=== PATIENT | female | born 2000 | race Caucasian/White ===

== ENCOUNTER 2024-08-21 09:37 | Emergency (ER) | payer SELFPAY ==
--- OUTSIDE RECORDS SUMMARY | 2024-08-21 09:41 | XMS REPORT | Continuity of Care Document ---
Author Name Unknown Address [address] [facility] [place] [address] [facility] Address [address] [facility] [place] [address] Care Team Providers Care General Activities Therapist Name Role Phone Patti Albrecht MD Primary Care Physician CASSIE SCHMIDT Attending Clinician Unavailable 2, [facility] Attending Clinician Unavailable Nadya Joyner MD Attending Clinician [phone] NADYA JOYNER Attending Clinician Unavailable NADYA JOYNER Attending Clinician Unavailable Ghada Wilburn MD Attending Clinician + [phone] JUDE PHILLIPS Attending Clinician Unavailable JUDE PHILLIPS Attending Clinician Unavailable CHARMAINE ZUNIGA Attending Clinician Unavailab CHARMAINE Mann Attending Clinician Unavailab Fiordaliza Zimmerman DO Attending Clinician [phone] NOAM CONWAY Attending Clinician Unavailable Noam Conway MD Attending Clinician [phone] BERT COULTER Attending Clinician Unavailable BERT COULTER Attending Clinician Unavailable Lavinia Graff DNP Attending Clinician [phone] CHEVY [place]IN Attending Clinician Unavailable Chevy Austin MD Attending Clinician [phone] PATTI ALBRECHT Attending Clinician Unava ilable [email or web address]_S Attending Clinician Unavaila ble LAB90 Attending Clinician Unavailable MD RIYA Attending Clinician Unavailab JHOAN Azul Attending Clinician Unavaila tong Hunddaren SEMI DRIVER-C, Tala Attending Clinician [phone] Jeffry JJ LD, Jhoan Rodriguez Attending Clinician [phone] Trena HARTMAN, Patti Weinstein Attending Clinician [phone] MARGUERITE VALVERDE Attending Clinician Unavailable Doctor Unassigned, [place] Attending Clinician U navailable CHEVY AUSTIN Admitting Clinician Unavailable [email or web address]_S Admitting Clinician Unavaila ble Payers Payer Name Policy Type Policy Number Effective Date Expirati on Date Source [place] [id number] 2019 00:00:00 BCBS 2 [id number] 2021 00:00:[place] [id number] 2019 00:00:00 Problems Condition Name Condition Details Condition Category Status Onset Date Resolution Date Last Treatment Date Treating Clinician Comments Source Obesity (BMI 30-39.9) Obesity (BMI 30-39.9) Disease Active 03-12 00:00: 00 [facility] Allergic conjunctiv itis of both eyes - Not Controlled Allergic conjunctiv itis of both eyes - Not Controlled Disease Active 07-16 00:00: 00 Jessica Avery - Externa l No known active problems No known active problems Disease Jessica Avery Allergies, Adverse Reactions, Alerts Allergy Name Allergy Type Status Severity Reaction(s) Onset Date Inactive Date Treating Clinician Comments Source NO KNOWN ALLERGIE S Drug Class Active [facility] Social History Social Habit Start Date Stop Date Quantity Comments Source [facility] SD[facility] Alcohol Std Drinks Jessica castillo History SDOH Alcohol Binge Jessica Avery History SDOH Alcohol Comment Jessica Tee ld Alcoholic beverage intake 2024-06-08 00:00:00 2024-06-08 00:00:00 Ex-drinker (finding) [facility] History of Social function 2024-06-08 00:00:00 2024-06-08 00:00:00 [facility] Tobacco use and exposure 2024-03-12 00:00:00 2024-03-12 00:00:00 Smokeless tobacco non-user [facility] Alcohol intake 2022-06-28 00:00:00 2022-06-28 00:00:00 Lifetime non-drinker (finding) Jessica Avery - External History SDOH Alcohol Frequency 2021-04-06 00:00:00 2021-04-06 00:00:00 1 Jessica Avery Sex Assigned At 2000 00:00:00 2000 00:00:00 Jessica Avery - External Smoking Status Start Date Stop Date Source Tobacco smoking consumption unknown [facility] Never smoked tobacco [facility] Medications Ordered Medication Name Filled Medication Name Start Date Stop Date Current Medication? Ordering Clinician Indication Dosage Frequency Signature (SIG) Comments Components Source amoxicillin -clavulanat e (AUGMENTIN) 875-125 mg per tablet 1 tablet 05-14 05:45: 00 05-14 04:55 :00 No 1{tbl} 1 tablet, Oral, ONCE NOW, 1 dose, On Fri05/14/24 at 0045, Routine, Reason for Anti-Infec tive: Documented Infection, Documented Infection Site: HEENT, Duration of Therapy: Once (ED) [facility] lidocaine-e pinephrine (XYLOCAINE WITH EPINEPHRINE ) 1 %-1:100,000 injection 20 mL 05-14 03:20: 00 05-14 03:30 :00 No 20mL 20 mL, Intraderma l, ONCE, 1 dose, On Meme 05/13/24 at 2230, BRANDY [facility] lidocaine 2% viscous (LIDOCAINE VISCOUS) 2 % solution 15 mL 05-14 03:19: 38 Yes 15mL 15 mL, Oral, Q4HPRN, Starting on Fri05/13/24 at 2219, Until Discontinu ed, BRANDY, Oral mucosal pain, pl [facility] acetaminoph en (TYLENOL) 160 mg/5 mL oral liquid 650 mg 05-14 02:45: 00 05-14 01:56 :00 No 650mg 650 mg, Oral, ONCE, 1 dose, On Fri05/13/24 at 2145, Routine [facility] iopamidol (ISOVUE 370-500 mL) injection 88 mL 05-14 01:45: 00 05-14 01:45 :00 No [id number] 88mL 88 mL, Intravenou s, ONCE, 1 dose, On Fri05/13/24 at 204, Routine [facility] ampicillin- sulbactam (UNASYN) 3 g in NaCl 0.9% (NS) 100 mL MINI-BAG 05-14 01:00: 00 05-14 02:05 :00 No 3g 3 g, IV Piggyback, ONCE, 1 dose, On Fri05/13/24 at 1999, Administer over 30 Minutes, 100 mL, Reason for Anti-Infec tive: Documented Infection, Documented Infection Site: HEENT, Duration of Therapy: Once (ED) [facility] NaCl 0.9% (NS) bolus infusion 1,000 mL 05-14 01:00: 00 05-14 02:05 :00 No 1000mL at 999 mL/hr, 1,000 mL, IV Infusion, ONCE, 1 dose, On Fri05/13/24 at 2000, BRANDY [facility] dexamethaso ne sod phos PF injection 10 mg 05-14 00:15: 00 05-14 01:46 :00 No 10mg 10 mg, Slow IV Push, ONCE, 1 dose, On Fri05/13/24 at 1915, 1 mL [facility] methylPREDN ISolone 4 mg tablets 05-13 00:00: 00 Yes [id number] Take by mouth SEE-INSTRU CTIONS. follow package directions [facility] amoxicillin -clavulanat e 875-125 mg per tablet 05-13 00:00: 00 05-24 04:59 :00 No [id number] 1{tbl} Take 1 tablet by mouth in the morning and 1 tablet in the evening. Do all this for 10 days. [facility] NaCl 0.9% (NS) bolus infusion 1,000 mL 05-02 20:00: 00 05-02 21:25 :00 No 1000mL at 999 mL/hr, 1,000 mL, IV Infusion, ONCE, 1 dose, On Fri05/02/24 at 1500, BRANDY [facility] HYDROcodone -acetaminop hen (NORCO) 10-325 mg tablet 1 tablet 03-30 08:30: 00 03-30 07:27 :00 No 1{tbl} 1 tablet, Oral, ONCE NOW, 1 dose, On Fri03/30/24 at 0330, Routine [facility] traMADoL (ULTRAM) 50 mg tablet 03-30 00:00: 00 Yes [id number] 50mg Take 1 tablet by mouth every 6 (six) hours as needed for Pain (scale 7-10). Indication s: acute pain [facility] methocarbam oL 500 mg tablet 03-30 00:00: 00 Yes [id number] 500mg Take 1 tablet by mouth every 6 (six) hours as needed for Pain (scale 7-10) (MUSCLE SPASM). [facility] ibuprofen (IBU) tablet 600 mg 03-04 06:30: 00 03-04 06:27 :00 No 600mg 600 mg, Oral, ONCE, 1 dose, On Fri03/04/24 at 0130, BRANDY [facility] Testosteron e 20.25 MG/ACT (1.62%) transdermal Gel 2022-10 00:00: [id number] 4 Pump onto the skin daily. Jessica mercedes methylPREDN ISolone 4 MG oral Tablet Therapy Pack 07-16 00:00: 00 Yes [id number] 1{teodora} Take 1 teodora by mouth See Admin Instructio ns Use as directed Jessica Avery Testosteron e Cypionate 100 MG/ML injection Solution 2019-10 00:00: 00 Yes Jessica Avery sulfamethox azole-trime thoprim 800-160 mg per tablet 2018-10 00:00: 00 Yes [id number] 1{tbl} Take 1 tablet by mouth every 12 (twelve) hours. [facility] traMADol (ULTRAM) 50 mg tablet 2018-10 00:00: 00 Yes [id number] 50mg Take 1 tablet by mouth every 8 (eight) hours as needed for Pain (scale 4-6). [facility] Immunizations Ordered Immunization Name Filled Immunization Name Date Status Comments Source DTaP Unspecified Unknown Completed Ollie Avery - External HEPATITIS A- PEDI/ADOL Unknown Completed Jessica Daly Meningococcal Vaccine- Conjugate(Menactra) Unknown Completed Jessica hirschboarley Waldron External MMR- Measles, Mumps, Rubella Unknown Completed Jessica Waldron External IPV- Inactivated Polio Vaccine Unknown Completed Jessica Waldron External Tdap- (Boostrix, Adacel) Unknown Completed Jessica Waldron External Varicella Vaccine Unknown Completed Lobito Avery - External Vital Signs Vital Name Observation Time Observation Value Comments S ource Systolic blood pressure 2024-06-08 19:27:00 110 mm[Hg] [facility] Diastolic blood pressure 2024-06-08 19:27:00 74 mm[Hg] [facility] Heart rate 2024-06-08 19:27:00 92 /min [facility] Body temperature 2024-06-08 19:27:00 36.89 Yajaira [facility] Body height 2024-06-08 19:27:00 172.7 cm [facility] Body weight 2024-06-08 19:27:00 111.676 kg [facility] BMI 2024-06-08 19:27:00 37.43 kg/m2 [facility] Systolic blood pressure 2024-05-14 05:04:03 143 mm[Hg] [facility] Diastolic blood pressure 2024-05-14 05:04:03 87 mm[Hg] [facility] Heart rate 2024-05-14 05:04:03 94 /min [facility] Body temperature 2024-05-14 05:04:03 37.44 Yajaira [facility] Respiratory rate 2024-05-14 05:04:03 16 /min [facility] Oxygen saturation in Arterial blood by Pulse oximetry 2024-05-14 05:04:03 97 /min [facility] Body height 2024-05-14 03:14:00 172.7 cm [facility] Body weight 2024-05-14 03:14:00 111.131 kg [facility] BMI 2024-05-14 03:14:00 37.25 kg/m2 [facility] Systolic blood pressure 2024-05-14 01:00:00 142 mm[Hg] [facility] Diastolic blood pressure 2024-05-14 01:00:00 82 mm[Hg] [facility] Heart rate 2024-05-14 01:00:00 119 /min [facility] Body temperature 2024-05-14 01:00:00 38.06 Yajaira [facility] Respiratory rate 2024-05-14 01:00:00 20 /min [facility] Oxygen saturation in Arterial blood by Pulse oximetry 2024-05-14 01:00:00 96 /min [facility] Body height 2024-05-14 00:02:00 172.7 cm [facility] Body weight 2024-05-14 00:02:00 111.131 kg [facility] BMI 2024-05-14 00:02:00 37.25 kg/m2 [facility] Systolic blood pressure 2024-05-02 21:25:00 117 mm[Hg] [facility] Diastolic blood pressure 2024-05-02 21:25:00 63 mm[Hg] [facility] Heart rate 2024-05-02 21:25:00 59 /min [facility] Body temperature 2024-05-02 21:25:00 37.28 Yajaira [facility] Respiratory rate 2024-05-02 21:25:00 16 /min [facility] Oxygen saturation in Arterial blood by Pulse oximetry 2024-05-02 21:25:00 99 /min [facility] Body height 2024-05-02 18:54:00 172.7 cm [facility] Body weight 2024-05-02 18:54:00 111.131 kg [facility] BMI 2024-05-02 18:54:00 37.25 kg/m2 [facility] Systolic blood pressure 2024-03-30 07:00:00 133 mm[Hg] [facility] Diastolic blood pressure 2024-03-30 07:00:00 80 mm[Hg] [facility] Heart rate 2024-03-30 07:00:00 61 /min [facility] Body temperature 2024-03-30 07:00:00 36.61 Yajaira [facility] Respiratory rate 2024-03-30 07:00:00 18 /min [facility] Body height 2024-03-30 07:00:00 172.7 cm [facility] Body weight 2024-03-30 07:00:00 110.678 kg [facility] BMI 2024-03-30 07:00:00 37.10 kg/m2 [facility] Oxygen saturation in Arterial blood by Pulse oximetry 2024-03-30 07:00:00 100 /min [facility] Systolic blood pressure 2024-03-13 06:14:00 134 mm[Hg] [facility] Diastolic blood pressure 2024-03-13 06:14:00 79 mm[Hg] [facility] Heart rate 2024-03-13 06:14:00 73 /min [facility] Body temperature 2024-03-13 06:14:00 36.94 Yajaira [facility] Respiratory rate 2024-03-13 06:14:00 18 /min [facility] Oxygen saturation in Arterial blood by Pulse oximetry 2024-03-13 06:14:00 98 /min [facility] Body height 2024-03-13 04:16:00 172.7 cm [facility] Body weight 2024-03-13 04:16:00 111.585 kg [facility] BMI 2024-03-13 04:16:00 37.40 kg/m2 [facility] Systolic blood pressure 2024-03-12 18:57:00 134 mm[Hg] [facility] Diastolic blood pressure 2024-03-12 18:57:00 84 mm[Hg] [facility] Heart rate 2024-03-12 18:57:00 68 /min [facility] Body temperature 2024-03-12 18:57:00 37 Yajaira [facility] Respiratory rate 2024-03-12 18:57:00 18 /min [facility] Body height 2024-03-12 18:57:00 172.7 cm [facility] Body weight 2024-03-12 18:57:00 111.857 kg [facility] BMI 2024-03-12 18:57:00 37.50 kg/m2 [facility] Systolic blood pressure 2024-03-04 07:37:00 127 mm[Hg] [facility] Diastolic blood pressure 2024-03-04 07:37:00 83 mm[Hg] [facility] Heart rate 2024-03-04 07:37:00 78 /min [facility] Body temperature 2024-03-04 07:37:00 36.94 Yajaira [facility] Respiratory rate 2024-03-04 07:37:00 16 /min [facility] Oxygen saturation in Arterial blood by Pulse oximetry 2024-03-04 07:37:00 99 /min [facility] Body height 2024-03-04 05:47:00 172.7 cm [facility] Body weight 2024-03-04 05:47:00 114.443 kg [facility] BMI 2024-03-04 05:47:00 38.36 kg/m2 [facility] Procedures Procedure Date / Time Performed Performing Clinicia n Source POCT TEST 2024-06-08 00:00:00 Nadya Joyner [facility] CT SOFT TISSUE NECK W CONTRAST 2024-05-14 00:57:37 Charmaine Zuniga [facility] BASIC METABOLIC PANEL (NA, K, CL, CO2, GLUCOSE, BUN, CREATININE, CA) 2024-05-14 00:15:00 Charmaine Zuniga [facility] CBC WITH DIFF 2024-05-14 00:15:00 Charmaine Zuniga [facility] RAPID STREP SCREEN FOR GROUP A 2024-05-14 00:08:00 Charmaine Zuniga [facility] EKG-12 LEAD 2024-05-02 20:57:[address] [facility] POCT TEST 2024-05-02 19:44:00 Mary Zuniga ra [facility] MAGNESIUM 2024-05-02 19:28:00 Charmaine Zuniga [facility] COMP. METABOLIC PANEL (40172) 2024-05-02 19:28:00 Charmaine Zuniga [facility] CBC WITH DIFF 2024-05-02 19:28:00 Charmaine Zuniga [facility] URINALYSIS 2024-05-02 19:28:00 Charmaine Zuniga [facility] XR HUMERUS 2 VW LEFT 2024-03-04 06:32:36 Chevy Austin [facility] REFERRAL- REQUEST/RESPONSE 2021-06-22 05:01:00 Doctor Unassigned, [place] [facility] Encounters Start Date/Time End Date/Time Encounter Type Admission Type Attending [facility] Care Facility Care Department Encounter ID Source 2023-06-05 10:37:[address] [facility] [id number] [facility] 2023-02-13 13:09:[address] [facility] [id number] [facility] 2023-01-30 10:43:[address] [facility] [id number] [facility] 2023-01-29 05:04:[address] [facility] [id number] [facility] 2023-01-16 07:29:[address] [facility] [id number] [facility] 2023-01-14 16:37:[address] [facility] [id number] [facility] 2022-08-23 14:29:[address] [facility] [id number] [facility] 2022-01-07 12:13:[address] [facility] [id number] [facility] 2021-11-29 12:23:[address] [facility] [id number] [facility] 2024-09-23 10:45:00 2024-09-23 10:45:00 Outpatient CASSIE SCHMIDT JESSICA DIANE [id number] [facility] 2024-08-19 00:00:00 2024-08-19 00:00:00 Outpatient ELEANOR SCMHIDTARNA JESSICA DIANE [id number] [facility] 2024-06-08 15:45:00 2024-06-08 16:00:00 Iso Coordinator Visit 2, Adc Lab Nadya Joyner 2, Adc Lab [facility] [id number] 350.1.13.10 4.2.7.2.686 [id number] [facility] 2024-06-08 14:00:00 2024-06-08 15:21:49 Outpatient R NADYA JOYNER [facility] [id number] [facility] 2024-06-08 14:00:00 2024-06-08 15:21:49 Office Visit Ghada Yao Vien Cam [facility] [id number] 350.1.13.10 4.2.7.2.686 [id number] [facility] 2024-05-13 22:15:00 2024-05-14 00:14:00 Emergency X JUDE PHILLIPS [facility]IO [facility] [id number] [facility] 2024-05-13 22:15:00 2024-05-14 00:14:00 Emergency Jude Phillips [facility] 1.2.840.114 350.1.13.10 4.2.7.2.686 [id number] [facility] 2024-05-13 19:10:00 2024-05-13 21:15:00 Emergency CHARMAINE VELAZQUEZ SANDR[facility] [id number] [facility] 2024-05-13 19:10:00 2024-05-13 21:15:00 Emergency Fiordaliza Gaming Sandra J [facility] 1.2840.114 350.1.13.10 4.2.7.2.686 [id number] [facility] 2024-05-02 13:56:00 2024-05-02 16:27:00 Emergency CHARMAINE VELAZQUEZ [facility] [id number] [facility] 2024-05-02 13:56:00 2024-05-02 13:56:00 Emergency Charmaine Zuniga [place] 1.2.840.114 350.1.13.10 4.2.7.2.686 [id number] [facility] 2024-04-15 08:00:00 2024-04-15 08:00:00 Outpatient NADYA ROBERTO [facility] [id number] [facility] 2024-03-30 02:04:00 2024-03-30 03:02:00 Emergency X NOAM CONWAY [facility] E[facility] [id number] [facility] 2024-03-30 02:04:00 2024-03-30 03:02:00 Emergency Noam Conway [place] 1.2.840.114 350.1.13.10 4.2.7.2.686 [id number] [facility] 2024-03-12 23:20:00 2024-03-13 01:28:00 Emergency X BERT COULTER [facility] [id number] [facility] 2024-03-12 23:20:00 2024-03-13 01:28:00 Emergency Rico [facility] 1..840.114 350.1.13.10 4.2.7.2.686 [id number] [facility] 2024-03-12 13:30:00 2024-03-12 14:35:40 Office Visit Momo Lavinia [facility] 1.2.840.114 350.1.13.10 4.2.7.2.686 [id number] [facility] 2024-03-12 13:30:00 2024-03-12 14:35:40 Outpatient R MOMO [facility] [id number] [facility] 2024-03-04 00:50:00 2024-03-04 02:54:00 Emergency X KHRIS AUSTINNT [facility] [id number] [facility] 2024-03-04 00:50:00 2024-03-04 02:54:00 Emergency Chevy Austin J [place] 1..840.114 350.1.13.10 4.2.7.2.686 [id number] [facility] 2024-02-23 14:00:00 2024-02-23 14:00:00 Outpatient PATTI ALBRECHT [id number] [facility] 2023-12-16 00:00:00 2023-12-16 00:00:00 Outpatient CASSIE SCHMIDT [id number] [facility] 2023-12-10 00:00:00 2023-12-10 00:00:00 Outpatient GC_GCBZW_Ka diyala_S PRIV PRIV [id number] [facility] 2023-10-02 10:50:00 2023-10-02 10:50:00 Outpatient LAB90 JESSICA DIANE [id number] [facility] 2023-09-23 10:15:00 2023-09-23 10:15:00 Outpatient CASSIE SCHMIDT JESSICA DIANE [id number] [facility] 2023-09-18 00:00:00 2023-09-18 00:00:00 Outpatient CASSIE SCHMIDT JESSICA DIANE [id number] [facility] 2023-09-17 00:00:00 2023-09-17 00:00:00 Outpatient CASSIE SCHMIDT JESSICA DIANE [id number] [facility] 2023-09-16 00:00:00 2023-09-16 00:00:00 Outpatient CASSIE SCHMIDT JESSICA DIANE [id number] [facility] 2023-07-07 00:00:00 2023-07-07 00:00:00 Outpatient MD JESSICA COHEN [id number] [facility] 2023-06-30 00:00:00 2023-06-30 00:00:00 Outpatient GC_GCBZW_Ka diyala_S PRIV PRIV [id number] [facility] 2023-06-27 00:00:00 2023-06-27 00:00:00 Outpatient GC_GCBZW_Ka diyala_S PRIV PRIV [id number] [facility] 2023-06-10 00:00:00 2023-06-10 00:00:00 Outpatient GC_GCBZW_Ka diyala_S PRIV PRIV [id number] [facility] 2023-02-03 00:00:00 2023-02-03 00:00:00 Outpatient CASSIE SCHMIDT JESSICA DIANE [id number] [facility] 2023-01-29 00:00:00 2023-01-29 00:00:00 Outpatient CASSIE SCHMIDT JESSICA DIANE [id number] [facility] 2023-01-10 14:55:00 2023-01-10 14:55:00 Outpatient LAB90 JESSICA DIANE [id number] Jessica [facility] 2022-09-10 11:55:00 2022-09-10 11:55:00 Outpatient LAB90 JESSICA DIANE [id number] Jessica [facility] 2022-09-04 00:00:00 2022-09-04 00:00:00 Outpatient CASSIE SCHMIDTLILLY DIANE [id number] Jessica [facility] 2022-08-23 15:00:00 2022-08-23 15:00:00 Outpatient JHOAN TERAN [id number] Jessica [facility] 2022-08-23 00:00:00 2022-08-23 00:00:00 Outpatient CASSIE SCHMIDT JESSICA DIANE [id number] [facility] 2022-08-22 00:00:00 2022-08-22 00:00:00 Outpatient CASSIE SCHMIDT JESSICA DIANE [id number] [facility] 2022-08-16 09:15:00 2022-08-16 09:15:00 Outpatient LAB90 JESSICA JESSICA [id number] Jessica [facility] 2022-08-07 16:30:00 2022-08-07 16:30:00 Outpatient CASSIE SCHMIDT JESSICA DIANE [id number] [facility] 2022-08-05 13:30:00 2022-08-05 13:30:00 Outpatient CASSIE SCHMIDT JESSICA DIANE [id number] [facility] 2022-06-28 14:00:00 2022-06-28 14:30:00 Office Visit Tala Hung 1.2.840.114 350.1.13.13 [id number] [id number] Jessica [facility] 2022-06-25 00:00:00 2022-06-25 00:00:00 Outpatient PATTI ALBRECHT [id number] [facility] 2022-06-21 15:30:00 2022-06-21 16:30:00 Education Jhoan Teran [facility] 1.2840.114 350.1.13.13 [id number] [id number] Jessica [facility] 2022-04-08 16:15:00 2022-04-08 16:30:00 Office Visit Patti Albrecht [place] 1.2840.114 350.1.13.13 [id number] [id number] Jessica [facility] 2022-04-05 14:45:00 2022-04-05 14:45:00 Outpatient TRENA PATTI DIANE [id number] Jessica [facility] 2022-04-04 14:00:00 2022-04-04 14:00:00 Outpatient PATTI ALBRECHT [id number] Jessica [facility] 2022-03-28 00:00:00 2022-03-28 00:00:00 Outpatient TRENA, PATTI DIANE [id number] [facility] 2021-11-05 00:00:00 2021-11-05 00:00:00 Outpatient TRENA PATTI DIANE [id number] Jessica [facility] 2021-09-10 00:00:00 2021-09-10 00:00:00 Outpatient MARGUERITE VALVERDE [id number] Jessica [facility] 2021-09-06 00:00:00 2021-09-06 00:00:00 Outpatient TRENA PATTI DIANE [id number] [facility] 2021-09-06 00:00:00 2021-09-06 00:00:00 Outpatient PATTI ALBRECHT [id number] Jessica [facility] 2021-09-05 13:59:45 2021-09-05 14:29:45 Telemedici nm Patti Albrecht [place] 1.2.840.114 350.1.13.13 1.2.7.2.686 [id number] Jessica [facility] 2021-07-27 00:00:00 2021-07-27 00:00:00 Outpatient MD JESSICA COHEN [id number] Jessica kacijani 2021-07-16 07:46:35 2021-07-16 08:18:01 Telemedici darrius Patti Albrecht [place] [id number] Jessica Avery 2021-06-22 00:00:00 2021-06-22 00:00:00 Orders Only Doctor Unassigned, [place] [facility] [id number] [facility] 2021-06-06 12:25:00 2021-06-06 12:25:00 Outpatient LAB90 JESSICA DIANE [id number] Jessica Avery 2021-06-06 11:15:00 2021-06-06 11:15:00 Outpatient MARGUERITE VALVERDE [id number] Jessica Avery Results Test Description Test Time Test Comments Results Result Co mments Source [facility] W [id number] 01:05:11EXAM: CT SOFT TISSUE NECK W CONTRAST History/Indication: Fever and throat swelling Comparison: NoneTechnique: Axial postcontrast images were obtained from supraventricularregion through the mediastinum. Findings: Visualized aspects of the brain, orbits and paranasal sinuseswere without worrisome findings. The tonsils are grossly enlarged and enhancing bilaterally right greaterthan left, and there is an approximately 2.5 x 1.4 x 3 cm right- sidedperitonsillar abscess annotated on image 37 of series 2 and coronal image32.The airway is severely narrowed but patent. There are reactive nodesbilaterally.[facility] CenterMagnesium2024-07-14 20:12:17 * Test Item Value Reference Range Interpretation Comme nts MAGNESIUM (test code = 7155815688) 2.0 mg/dL 1.7-2.4 Lab Interpretation (test cod e = 04501-0) Normal [facility] CenterCOMP. METABOLIC PANEL (52991)2024-05-02 20:11:57* Test Item Value Reference Range Interpretation Comme nts NA (test code = 9381620832) 135 mmol/L 135-145 K (test code = 3823224825) 4.3 mmol/L 3.5-5.0 CL (test code = 6705704472) 103 mmol/L 98-108 CO2 TOTAL (test code = 2018840549) 27 mmol/L 23-31 AGAP (test code = 2009366035) 5 2-16 BUN (test code = 2279803091) 15 mg/dL 7-23 GLUCOSE (test code = 2997999732) 78 mg/dL 70-110 CREATININE (test code = 2160-0) 0.67 mg/dL 0.50-1.04 TOTAL BILI (test code = 7226463431) 0.9 mg/dL 0.1-1.1 CALCIUM (test code = 3016577591) 8.8 mg/dL 8.6-10.6 T PROTEIN (test code = 9197287184) 7.2 g/dL 6.3-8.2 ALBUMIN (test code = 2395668801) 4.0 g/dL 3.5-5.0 ALK PHOS (test code = 9873549863) 65 U/L 34-122 ALTv (test code = 1742-6) 18 U/L 5-35 AST(SGOT) (test code = 5154582266) 23 U/L 13-40 eGFR (test code = 77519-0) 126.1 mL/min/1.73m2 CKD-EPI eGFR (20 21). Assuming creatinine has been stable day-to-day for at least three months, the eGFR indicates Category G1 (>= 90 mL/min/1.73 m2) [facility] CenterCB WITH [id number] 19:58:36* Test Item Value Reference Range Interpretation Comme nts WBC (test code = 6690-2) 8.51 4.30-11.10 RBC (test code = 789-8) 4.89 3.93-5.25 HGB (test code = 718-7) 14.3 g/dL 11.6-15.0 HCT (test code = 4544-3) 42.2 % 35.7-45.2 MCV (test code = 787-2) 86.3 fL 80.6-95.5 MCH (test code = 785-6) 29.2 pg 25.9-32.8 MCHC (test code = 786-4) 33.9 g/dL 31.6-35.1 RDW-SD (test code = 46406-5) 38.9 fL 39.0-49.9 L RDW-CV (test code = 788-0) 12.4 % 12.0-15.5 PLT (test code = 777-3) 284 166-358 MPV (test code = 20611-5) 10.3 fL 9.5-12.9 NRBC/100 WBC (test code = 8153805027) 0.0 0.0-10.0 NRBC x10^3 (test code = 0510891574) See_Comment [Automated messa ge] The system which generated this result transmitted reference range: 10*3/?L. The reference range was not used to interpret this result as normal/abnormal. GRAN MAT (NEUT) % (test code = 770-8) 56.8 % IMM GRAN % (test code = 4549123054) 0.20 % LYMPH % (test code = 736-9) 33.1 % MONO % (test code = 5905-5) 8.2 % EOS % (test code = 713-8) 1.1 % BASO % (test code = 706-2) 0.6 % GRAN MAT x10^3(ANC) (test code = 3644312367) 4.83 10*3/uL 1.88-7.09 IMM GRAN x10^3 (test code = 5839745290) 0.00-0.06 LYMPH x10^3 (test code = 731-0) 2.82 10*3/uL 1.32-3.29 MONO x10^3 (test code = 742-7) 0.70 10*3/uL 0.33-0.92 EOS x10^3 (test code = 711-2) 0.09 10*3/uL 0.03-0.39 BASO x10^3 (test code = 704-7) 0.05 10*3/uL 0.01-0.07 Lab Interpretation (test code = 44000-1) Abnormal [facility] CenterPOCT [id number] 19:44:00* Test Item Value Reference Range Interpretation Comme nts POCT PREG (test code = 1605) Negative On board controls acceptable with C Line (test code = 3574) Yes Lab Interpretation (test cod e = 72028-3) Normal [facility] CenterXR HUMERUS 2 VW [id number] 07:19:12 ORDERING PHYSICIAN: CHEVY AUSTIN TWO VIEWS OF LEFT HUMERUS. DATE: ?03/04/2024 2:18 AM CLINICAL INDICATIONS: Left arm injury, pain COMPARISON: None. FINDINGS: ?Frontal and lateral views of the left humerus demonstrate noevidence for acute fracture, subluxation or destructive osseous lesion. The overlying soft tissue is unremarkable.[facility] Notes Date/Time Note Provider Source 2024-06-08 15:45:00 Images from the original note were not included. Venipuncture collection performed by clean technique on the left anticubitus. Total of 1 attempts were made. Slight pressure and a bandage/dressing were applied to the site(s). The patient experienced no complications. The following specimens were processed according to instructions and sent to [facility] laboratories per lab order on 06/08/2024 : LT BLUE SST 1 RED LAV PPT DK GREEN (LiHep) DK GREEN (SodH) MCKEON DK BLUE (K2) DK BLUE (S) ACD Blood Culture NIPT/NTD [facility] - Health 2024-05-14 00:11:05 Patient given printed and verbal discharge instructions and medications, encouraged hydration and proper nutrition. Discussed indications, medication side effects, and therapeutic response to medications. Advised to take until completed unless adverse reaction occurs - if occurs, discontinue medication and follow up with PCP/seek medical attention. Patient verbalized understanding of instructions. Patient awake alert oriented, respirations even and unlabored, no acute distress noted, skin warm & dry, color appropriate for race, moves all extremities well. Patient encouraged to follow up with PCP and to keep all appropriate appointments as scheduled or to return to ED for new/prolonged/worsening of symptoms No adverse reaction to medications given in ER noted upon discharge PIV d'cd without complications, dressing to site, catheter intact. Patient in possession of all belongings. [facility] Awaiting ride. Harshad Thompson RN Harshad Thompson RN [facility] 2024-05-13 23:52:15 SW at bedside. Pt provided with [employer]. Dysphagia screening passed. Provided with applesauce and water. Tolerated well. [facility] 2024-05-13 23:42:36 Images from the original note were not included. ED [facility] Case Note 05/13/2024 11:42 PM Transportation arranged via Ready[employer] Set, [employer] . Patient name: Fito Mathew Discharge date: 05/13/2024 Reason for voucher: Pt is discharging from the ER and was brought here by REFERRAL. Pt is need of transportation home Voucher #: [id number] ELEANOR met with pt face to face Pt is AOX 4 Pt verbally confirmed address on facesheet: [address] [facility] [address] HARIKA Shelley It Application Architect [facility] - Care Management Office [email or web address] [facility] 2024-05-13 23:21:12 Pt lying in bed, respirations even and unlabored, no distress noted. Bed locked and lowered with side rail up. Pt understands plan of care and verbalizes understanding. No medications, labs or interventions due at this time. Call catalan with in reach. [facility] 2024-05-13 22:42:43 Suction set up at bedside. Provided with lidocaine and supplies per request. [facility] 2024-05-13 22:42:05 ENT at bedside. [facility] 2024-05-13 22:37:14 Pharmacy contacted. Advised meds would be tubed. [facility] 2024-05-13 22:24:09 MD at the bedside. Luiza Grove RN [facility] 2024-05-13 22:13:50 Fito Mathew is a 23 year old adult bib ems as referral for ENT consult d/t peritonsillar abscess. Reporting pain 04/28. Airway patent and managing secretions. Aox4, rr even and unlabored on ra, skin warm and dry. To 127 for further eval. ENT paged at [phone]. En route to see pt. Orders to be placed. Orlando Jimenez RN [facility] 2024-05-13 22:12:00 [facility] Emergency Department Note Demographics Patient Name: Fito Mathew Date of : 2000 23 year old Treatment [facility]: [facility] Primary Care Physician: Patti Albrecht [facility] Patient Escorted by: Self [9] Mode of Arrival: EMS - [facility] [69] EMS Treatment Prior to ED Arrival: ESTHETICIAN FACIALIST treatment: Medication (comment) ED Events Date/Time Event User Comments 05/13/242214 Medical Screening Begins JUDE PHILLIPS MD -- 05/13/242214 First Provider Evaluation JUDE PHILLIPS MD -- Chief complaint Chief Complaint Patient presents with REFERRAL ED Triage Notes Orlando Jimenez RN 05/13/2024 22:20 Fito Mathew is a 23 year old adult bib ems as referral for ENT consult d/t peritonsillar abscess. Reporting pain 04/28. Airway patent and managing secretions. Aox4, rr even and unlabored on ra, skin warm and dry. To rm 127 for further eval. ENT paged at [phone]. En route to see pt. Orders to be placed. Chief Complaint Patient presents with REFERRAL History of present illness HPI 23 yo comes to the ED complaining of peritonsillar abscess. Patient is a transfer from [facility]. Symptoms started a week ago. No sick contacts. BP (!) 142/82 | Pulse 75 | Temp 37.8 ?C (100.1 ?F) | Resp 18 | Ht 1.727 m (5' 8") | Wt 111.1 kg (245 lb) | BMI 37.25 kg/m? Past Medical and Social History Past Medical History: Diagnosis Date PCOS (polycystic ovarian syndrome) Peritonsillar abscess Per mother Tetanus received in last 5 years: Unknown Childhood immunizations: Up-to-date Social History Tobacco Use Smoking status: Never Smokeless tobacco: Never Vaping Use Vaping status: Never Used Substance Use Topics Alcohol use: Not Currently Drug use: Never Past Surgical History Past Surgical History: Procedure Laterality Date CHOLECYSTECTOMY Medications Medications lidocaine 2% viscous (LIDOCAINE VISCOUS) 2 % solution 15 mL (15 mL Oral Given by Provider 05/13/242319) lidocaine-epinephrine (XYLOCAINE WITH EPINEPHRINE) 1 %-1:100,000 injection 20 mL (20 mL Intradermal Given by Provider 05/13/242229) Allergies No Known Allergies Review of Systems Review of Systems Constitutional: Negative. HENT: Positive for sore throat. Eyes: Negative. Respiratory: Negative. Cardiovascular: Negative. Gastrointestinal: Negative. Genitourinary: Negative. Musculoskeletal: Negative. Skin: Negative. Neurological: Negative. Psychiatric/Behavioral: Negative. Endocrine: Endocrine negative Physical Exam BP (!) 142/82 | Pulse 75 | Temp 37.8 ?C (100.1 ?F) | Resp 18 | Ht 1.727 m (5' 8") | Wt 111.1 kg (245 lb) | BMI 37.25 kg/m? Physical Exam Vitals and nursing note reviewed. Constitutional: General: He is not in acute distress. Appearance: He is well-developed. He is not ill-appearing. HENT: Head: Normocephalic and atraumatic. Right Ear: Ear canal and external ear normal. Left Ear: Ear canal and external ear normal. Nose: Nose normal. No congestion or rhinorrhea. Mouth/Throat: Mouth: Mucous membranes are moist. Pharynx: Oropharynx is clear. No oropharyngeal exudate or posterior oropharyngeal erythema. Eyes: General: Right eye: No discharge. Left eye: No discharge. Conjunctiva/sclera: Conjunctivae normal. Pupils: Pupils are equal, round, and reactive to light. Cardiovascular: Rate and Rhythm: Normal rate and regular rhythm. Pulses: Normal pulses. Heart sounds: Normal heart sounds. No murmur heard. No friction rub. Pulmonary: Effort: Pulmonary effort is normal. No respiratory distress. Breath sounds: Normal breath sounds. No stridor. No wheezing or rhonchi. Abdominal: General: Bowel sounds are normal. There is no distension. Palpations: Abdomen is soft. There is no mass. Tenderness: There is no abdominal tenderness. Hernia: No hernia is present. Musculoskeletal: General: No swelling, tenderness, deformity or signs of injury. Normal range of motion. Cervical back: Normal range of motion and neck supple. No rigidity or tenderness. Skin: General: Skin is warm and dry. Capillary Refill: Capillary refill takes less than 2 seconds. Coloration: Skin is not jaundiced or pale. Findings: No bruising or erythema. Neurological: General: No focal deficit present. Mental Status: He is alert and oriented to person, place, and time. Cranial Nerves: No cranial nerve deficit. Sensory: No sensory deficit. Motor: No weakness. Coordination: Coordination normal. Psychiatric: Mood and Affect: Mood normal. Behavior: Behavior normal. Thought Content: Thought content normal. Judgment: Judgment normal. Labs and Studies Lab Results - No data to display No orders to display Orders and Treatments Orders Placed This Encounter Procedures Wound/Aspirate or Abscess Culture Aspirate or Abscess Culture(Aerobic/Anaerobic) Consult Otolaryngology Orders Placed This Encounter Medications lidocaine 2% viscous (LIDOCAINE VISCOUS) 2 % solution 15 mL lidocaine-epinephrine (XYLOCAINE WITH EPINEPHRINE) 1 %-1:100,000 injection 20 mL Patient's Medications START taking these medications No medications on file CONTINUE taking these medications which have NOT CHANGED METHOCARBAMOL 500 MG TABLET Take 1 tablet by mouth every 6 (six) hours as needed for Pain (scale 7-10) (MUSCLE SPASM). SULFAMETHOXAZOLE-TRIMETHOPRIM 800-160 MG PER TABLET Take 1 tablet by mouth every 12 (twelve) hours. TRAMADOL (ULTRAM) 50 MG TABLET Take 1 tablet by mouth every 8 (eight) hours as needed for Pain (scale 4-6). TRAMADOL (ULTRAM) 50 MG TABLET Take 1 tablet by mouth every 6 (six) hours as needed for Pain (scale 7-10). Indications: acute pain START taking Modified Medications as Prescribed No medications on file STOP taking these medications No medications on file Procedures Procedures Evidence Care MDM & Notes Patient was evaluated for an emergency medical condition related to REFERRAL Labs:were not ordered. Abnormal Labs Reviewed - No abnormal labs to display Imaging:Was not ordered Diagnosis/Impression as of 05/13/24 2330 Peritonsillar abscess Medical Decision Making 23 yo comes to the ED complaining of peritonsillar abscess. Patient is a transfer from [facility]. Symptoms started a week ago. No sick contacts. BP (!) 142/82 | Pulse 75 | Temp (!) 31.2 ?C (88.2 ?F) (Oral) | Resp 18 | Ht 1.727 m (5' 8") | Wt 111.1 kg (245 lb) | BMI 37.25 kg/m? Assessment and plan: consult ENT for evaluation of ESTHETICIAN FACIALIST. Amount and/or Complexity of Data Reviewed Discussion of management or test interpretation with external provider(s): Peritonsillar abscess drained at bedside by ENT. Prescriptions given, advised to continue medications f/u with ENT and return to the ED if worsening of symptoms. Patient understands and agrees with the plan. Pulse Oximetry: is not hypoxic. Interpreted. Reassessment:stable Limitations to patient care and compliance: none. Plan & Summary: Fito Mathew is a 23 year old adult presenting for complaint(s) listed within the note. Patient has been deemed stable for discharge. Follow up with providers listed below for further evaluation and management. Return precautions given if symptoms worsen as documented in the discharge instructions. History, physical exam findings, results of visit, diagnosis, medication regimens and plan of future care have been considered. Additional MDM may be found in the ED course. Vital signs were rechecked before final disposition and determined to be stable. Disposition & Follow Up ED Disposition ED Disposition Disch - Home Condition Stable Comment -- Patient's Medications START taking these medications No medications on file CONTINUE taking these medications which have NOT CHANGED METHOCARBAMOL 500 MG TABLET Take 1 tablet by mouth every 6 (six) hours as needed for Pain (scale 7-10) (MUSCLE SPASM). SULFAMETHOXAZOLE-TRIMETHOPRIM 800-160 MG PER TABLET Take 1 tablet by mouth every 12 (twelve) hours. TRAMADOL (ULTRAM) 50 MG TABLET Take 1 tablet by mouth every 8 (eight) hours as needed for Pain (scale 4-6). TRAMADOL (ULTRAM) 50 MG TABLET Take 1 tablet by mouth every 6 (six) hours as needed for Pain (scale 7-10). Indications: acute pain START taking Modified Medications as Prescribed No medications on file STOP taking these medications No medications on file Diagnoses ICD-10-CM 1. Peritonsillar abscess J36 Disposition and Condition ED Disposition ED Disposition Disch - Home Condition Stable Comment -- Patient's Medications START taking these medications No medications on file CONTINUE taking these medications which have NOT CHANGED METHOCARBAMOL 500 MG TABLET Take 1 tablet by mouth every 6 (six) hours as needed for Pain (scale 7-10) (MUSCLE SPASM). SULFAMETHOXAZOLE-TRIMETHOPRIM 800-160 MG PER TABLET Take 1 tablet by mouth every 12 (twelve) hours. TRAMADOL (ULTRAM) 50 MG TABLET Take 1 tablet by mouth every 8 (eight) hours as needed for Pain (scale 4-6). TRAMADOL (ULTRAM) 50 MG TABLET Take 1 tablet by mouth every 6 (six) hours as needed for Pain (scale 7-10). Indications: acute pain START taking Modified Medications as Prescribed No medications on file STOP taking these medications No medications on file Oh My [employer] Dict[employer] Software is used frequently and may produce errors. Promptly contact for obvious discrepancies. Jude Phillips MD, FACEP, FAAEM Port Engineer of Emergency and Internal Medicine [facility], [facility] #[id number] Jude Phillips MD 05/13/24 2331 T [facility] 2024-05-13 21:11:57 Patient transferred to [facility] ED [place] for diagnosis of peritonsillar abscess. Patient agrees to transfer/admit plan and verbalized understanding of plan of care, family aware of plan Patient awake alert, oriented, resp reg unlabored, skin w/d PIV patent, no s/s infiltration noted, No adverse reaction to medications given while in ED. Report given to [facility] personnel Grace Infante RN [facility] 2024-05-13 20:55:17 Pt with swollen and red throat with foul odor. Airway intact, no resp distress. Pt able to swallow liquids with small sips at a time. [facility] 2024-05-13 20:33:31 [facility] ambulance eta 30min [facility] 2024-05-13 19:02:12 Throat swelling since Friday. Pt arrived by [facility]. Low grade fever at home Julia Thompson RN [facility] 2024-05-13 19:01:00 [facility] Emergency Department Note Patient Name: Fito Mathew Date of : 2000 23 year old adult Treatment Room: Room/bed info not found Primary Care Physician: PATIENT DOES NOT HAVE A PCP Patient Escorted by: Self [9] [facility] EMS Treatment Prior to ED Arrival: ESTHETICIAN FACIALIST treatment: Medication (comment) ESTHETICIAN FACIALIST treatment comments: Nyquil 1pm Travel and Exposure Screening: Symptoms Does patient have any of these symptoms?: (not recorded) Exposure Screening Has patient had contact with someone with a communicable disease in the last month?: (not recorded) Diseases exposed to:: (not recorded) Is Patient ?: (not recorded) Exposure Date: (not recorded) Chief Complaint: Chief Complaint Patient presents with Sore Throat History of Present Illness: The patient presents from home with EMS for evaluation for worsening sore throat over the past 1 week. Low-grade fevers up to 99. No sick contacts. He does not smoke. No cough or congestion. He did take some NyQuil earlier today. Here for evaluation. Past Medical History/Immunizations: Past Medical History: Diagnosis Date PCOS (polycystic ovarian syndrome) Peritonsillar abscess Per mother Tetanus received in last 5 years: Unknown Childhood immunizations: Up-to-date Allergies: No Known Allergies Past Social History: Tobacco Use Never smoked or used smokeless tobacco. Vaping Use Never used Alcohol Use Not Currently. Drug Use Never. Sexual Activity Sexually active; Partners: Male; Control/Protection: Inserts. Past Surgical History: Past Surgical History: Procedure Laterality Date CHOLECYSTECTOMY Review of Systems: Review of Systems Constitutional: Negative for chills and fever. HENT: Positive for sore throat. Negative for congestion and drooling. Respiratory: Negative for cough. Cardiovascular: Negative for chest pain. Gastrointestinal: Negative for abdominal pain and vomiting. Genitourinary: Negative for dysuria. Musculoskeletal: Negative for arthralgias. Skin: Negative for wound. Neurological: Negative for dizziness. Psychiatric/Behavioral: Negative for agitation. Physical Exam: ED Triage Vitals [05/13/24 1902] Weight 111.1 kg (245 lb) Actual or estimated Estimated by patient/family report Height 1.727 m (5' 8") BP (!) 140/99 Pulse 128 Resp 20 Temp 37.4 ?C (99.3 ?F) Temp source Oral SpO2 97 % Measured on Room air Physical Exam Vitals and nursing note reviewed. Constitutional: Appearance: Normal appearance. He is obese. HENT: Head: Normocephalic and atraumatic. Mouth/Throat: Comments: Swelling of the posterior pharynx without airway compromise. The uvula is midline. He does have a hot potato voice but is able to control his secretions. Cardiovascular: Rate and Rhythm: Normal rate and regular rhythm. Pulses: Normal pulses. Pulmonary: Effort: Pulmonary effort is normal. No respiratory distress. Abdominal: General: There is no distension. Palpations: There is no mass. Tenderness: There is no abdominal tenderness. Musculoskeletal: General: Normal range of motion. Cervical back: Normal range of motion and neck supple. Skin: General: Skin is warm and dry. Neurological: General: No focal deficit present. Mental Status: He is alert and oriented to person, place, and time. Radiology: CT SOFT TISSUE NECK W CONTRAST Final Result EXAM: CT SOFT TISSUE NECK W CONTRAST History/Indication: Fever and throat swelling Comparison: None Technique: Axial postcontrast images were obtained from supraventricular region through the mediastinum. Findings: Visualized aspects of the brain, orbits and paranasal sinuses were without worrisome findings. The tonsils are grossly enlarged and enhancing bilaterally right greater than left, and there is an approximately 2.5 x 1.4 x 3 cm right-sided peritonsillar abscess annotated on image 37 of series 2 and coronal image 32. The airway is severely narrowed but patent. There are reactive nodes bilaterally. IMPRESSION Impression: Bilateral tonsillitis with a right-sided peritonsillar abscess and airway compression. Lab Results: Lab Results RAPID STREP SCREEN FOR GROUP A - Abnormal Result Value Ref Range Molecular Strep Positive (*) Negative CBC WITH DIFF WBC 16.23 10*3/?L RBC 5.21 10*6/?L HGB 15.1 g/dL HCT 44.9 35.7 - 45.2 % MCV 86.2 fL MCH 29.0 pg MCHC 33.6 g/dL RDW-SD 38.1 fL RDW-CV 12.1 % PLT 310 10*3/?L MPV 10.4 fL NRBC/100 WBC 0.0 0.0 - 10.0 /100 WBCs NRBC x10 3 <0.01 10*3/?L GRAN MAT (NEUT) % 78.3 % IMM GRAN % 0.50 % LYMPH % 11.6 % MONO % 8.9 % EOS % 0.4 % BASO % 0.3 % GRAN MAT x10 3 (ANC) 12.72 10*3/uL IMM GRAN x10 3 0.08 10*3/uL LYMPH x10 3 1.88 10*3/uL MONO x10 3 1.44 10*3/uL EOS x10 3 0.06 10*3/uL BASO x10 3 0.05 10*3/uL BASIC METABOLIC PANEL (NA, K, CL, CO2, GLUCOSE, BUN, CREATININE, CA) NA 138 135 - 145 mmol/L K 3.7 3.5 - 5.0 mmol/L CL 101 98 - 108 mmol/L CO2 TOTAL 27 23 - 31 mmol/L AGAP 10 2 - 16 BUN 11 7 - 23 mg/dL GLUCOSE 90 70 - 110 mg/dL CREATININE 0.63 mg/dL CALCIUM 9.2 8.6 - 10.6 mg/dL eGFR 128.0 mL/min/1.73m2 EKG: If EKG completed, see Procedure Note. Orders and Treatments: Orders Placed This Encounter Procedures CT SOFT TISSUE NECK W CONTRAST RAPID STREP SCREEN FOR GROUP A CBC WITH DIFF BASIC METABOLIC PANEL (NA, K, CL, CO2, GLUCOSE, BUN, CREATININE, CA) Orders Placed This Encounter Medications NaCl 0.9% (NS) bolus infusion 1,000 mL dexamethasone sod phos PF injection 10 mg iopamidol (ISOVUE 370-500 mL) injection 88 mL ampicillin-sulbactam (UNASYN) 3 g in NaCl 0.9% (NS) 100 mL MINI-BAG First Provider Eval: ED Events Date/Time Event User Comments 05/13/241905 Medical Screening Begins CHARMAINE ZUNIGA DO -- 05/13/241905 First Provider Evaluation CHARMAINE ZUNIGA DO -- AdmissionCare Guideline: Head and Neck Surgery / Procedure, Inpt/Amb Based on the indications selected for the patient, the bed status of Outpatient in a Bed was determined to be MET The following indications were selected as present at the time of evaluation of the patient: - Clinical Indications for Procedure - Surgery or other procedure covered by this guideline is indicated for 1 or more of the following: - Abscess (eg, peritonsillar abscess) Operative Status Criteria selected: Ambulatory: Benchmark Length of Stay (BLOS) = A AdmissionCare documentation entered by: Charmaine Zuniga [facility], 28th edition, Copyright ? 2023 [facility] [employer] [facility] All Rights Reserved. [id number]:19-05:00 ED COURSE Diagnosis/Impression as of 05/13/242034 Throat pain Tachycardia Peritonsillar abscess Procedures: Procedures MDM: Medical Decision Making The patient presents from home via EMS for evaluation for worsening sore throat over the past 1 week. He also complains of low-grade fevers of 99. No sick contacts. No cough or congestion. He tried some NyQuil earlier today. He does not smoke. The patient is tachycardic in the ER. There is swelling of the posterior pharynx however there is no airway compromise. The uvula is midline. He does have trismus as well as a hot potato voice. Will screen for strep and obtain a CT soft tissue neck to eval for possible peritonsillar abscess. Will also give IV fluids and Decadron for his throat swelling. Final disposition pending. 2023 -the patient is doing well here in the ER. Laboratory studies are unremarkable. A CT of the soft tissue neck shows a peritonsillar abscess. He was given a dose of IV antibiotics here in the ER. Will need to be transferred to the [facility] for drainage by ENT. 2030 -spoke with with the ENT service in [place] and the patient was accepted for admission for continued management. He is pending transportation. Problems Addressed: Peritonsillar abscess: acute illness or injury Tachycardia: acute illness or injury Throat pain: acute illness or injury Amount and/or Complexity of Data Reviewed Labs: ordered. Decision-making details documented in ED Course. Radiology: ordered and independent interpretation performed. Decision-making details documented in ED Course. Risk Prescription drug management. Decision regarding hospitalization. Flowsheet Documentation: Scoring Tools: No data recorded Disposition/Condition: ED Disposition ED Disposition Transfer - [facility] to [facility] Condition -- Comment -- Discharge Medications: Patient's Medications START taking these medications No medications on file CONTINUE taking these medications which have NOT CHANGED METHOCARBAMOL 500 MG TABLET Take 1 tablet by mouth every 6 (six) hours as needed for Pain (scale 7-10) (MUSCLE SPASM). SULFAMETHOXAZOLE-TRIMETHOPRIM 800-160 MG PER TABLET Take 1 tablet by mouth every 12 (twelve) hours. TRAMADOL (ULTRAM) 50 MG TABLET Take 1 tablet by mouth every 8 (eight) hours as needed for Pain (scale 4-6). TRAMADOL (ULTRAM) 50 MG TABLET Take 1 tablet by mouth every 6 (six) hours as needed for Pain (scale 7-10). Indications: acute pain START taking Modified Medications as Prescribed No medications on file STOP taking these medications No medications on file Follow-up: Electronically signed by: Charmaine Zuniga DO 05/13/242034 [facility] 2024-05-13 19:01:00 AdmissionCare Guideline: Head and Neck Surgery / Procedure, Inpt/Amb Based on the indications selected for the patient, the bed status of Outpatient in a Bed was determined to be MET The following indications were selected as present at the time of evaluation of the patient: - Clinical Indications for Procedure - Surgery or other procedure covered by this guideline is indicated for 1 or more of the following: - Abscess (eg, peritonsillar abscess) Operative Status Criteria selected: Ambulatory: Benchmark Length of Stay (BLOS) = A AdmissionCare documentation entered by: Charmaine Zuniga [facility], 28th edition, Copyright ? 2023 [facility] All Rights Reserved. [id number]:23:19-05:00 T [facility] 2024-05-02 16:26:12 Pt given printed and verbal discharge instructions regarding dizziness, encouraged hydration. Pt verbalized understanding of instructions, pt awake alert oriented, resp reg unlabored, skin w/d, color appropriate for race, moves all ext well, pt encouraged to follow up with pcp. Advised to seek medical attention for new/prolonged/worsening of symptoms. Symptoms addressed. No adverse reaction to meds given in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
[2024-08-21] MEDS ORDERED: KETOROLAC 30 MG/ML INJ ONE (10:09)
[2024-08-21] MEDS ORDERED: PROMETHAZINE INJ 25 MG/ML AMP ONE (10:09)
[2024-08-21] MEDS ORDERED: NA CHLORIDE 0.9% 1,000 ML ONE (10:09)
[2024-08-21] MEDS ORDERED: MORPHINE 4 MG/ML SYR ONE (10:09)
[2024-08-21 10:11] LABS: Absolute Eosinophils 0.1 K/uL (0-0.5); Absolute Lymphocytes (CBC) 1.8 K/uL (0.7-4.9); Absolute Monocytes 0.6 K/uL (0.1-1.3); Absolute Neutrophil 4.4 K/uL (1.8-8.0); Basophils % 0.6 % (0-1.3); Eosinophils % 1.9 % (0-4.4); Hematocrit 40.5 % (36.0-45.0); Hemoglobin 13.9 g/dL (12.0-15.0); Lymphocytes % 25.2 % (15.3-44.8); MCH 29.5 pg (27.0-35.0); MCHC 34.4 g/dL (32.0-36.0); MCV 85.8 fL (80-100); MPV 7.5 fL (7.6-11.3); Neutrophils % 63.3 % (41.7-73.7); Platelets 277 thou/uL (152-406); RBC Red Blood Cell Count 4.72 M/uL (3.86-4.86); Red Cell Distribution Width 12.4 % (12.1-15.2)
[2024-08-21 10:32] LABS: Anion Gap 6.1 mEq/L (5.0-15.0); Potassium 4.1 mEq/L (3.5-5.1)
[2024-08-21 10:32] LABS: Specific Gravity > 1.030 (1.005-1.030)
--- NOTE | 2024-08-21 11:09 | RAD REPORT ---
EXAMINATION: CT ABDOMEN AND PELVIS WITHOUT CONTRAST CLINICAL INDICATION: PAIN TECHNIQUE: CT abdomen and pelvis was performed, without IV contrast, as per department protocol. Axia l, sagittal and coronal reconstructions were obtained. One or more of the following dose reduction techniques were used: Automated exposure control, adjustment of the mA and kV according to the patien t size, and iterative reconstruction. Unless otherwise specified, incidental findings do not require dedicated imaging follow-up. COMPARISON: No prior exam. FINDINGS: The lack of intravenous contrast limits the sensitivity of this exam for evaluation of solid visceral organs, vascular structures, and retroperitoneum. LOWER CHEST: The visualized lung bases are clear. LIVER:Normal in size and contour. No focal lesion. Cholecystectomy clips. SPLEEN: Normal size. No focal lesion. PANCREAS: No mass, ductal dilation, or becca-pancreatic fluid. ADRENALS: Normal; no mass. KIDNEYS AND URETERS: Normal size and contour. No hydronephrosis. URINARY BLADDER: Normal contour. GASTROINTESTINAL TRACT: No evidence of bowel obstruction, significant free fluid, free air or abscess . APPENDIX: Normal appendix. LYMPH NODES: No lymphadenopathy. MUSCULOSKELETAL: No acute or suspicious osseous abnormality. ADDITIONAL FINDINGS: None. IMPRESSION: No acute or concerning abnormalities in the abdomen or pelvis, with evaluation limited by lack of IV contrast.
--- NOTE | 2024-08-21 12:07 | ER ---
Nurse's Notes [facility] Name: Libia Mathew Age: 24 yrs Sex: Female : 2000 Arrival Date: 08/21/2024 Time: 09:37 Bed 14 Private MD: Diagnosis: Abdominal pain, unspecified;Acute stress reaction Presentation: 08/21 09:43 Chief complaint: Patient states: woke up with upper right abd pain , feels like iw gallbladder pain but has had it removed, also vomiting. Coronavirus screen: Client presents with at least one sign or symptom that may indicate coronavirus-19. Ebola Screen: No symptoms or risks identified at this time. Initial Sepsis Screen: Does the patient meet any 2 criteria? No. Patient's initial sepsis screen is negative. Does the patient have a suspected source of infection? No. Patient's initial sepsis screen is negative. Risk Assessment: Do you want to hurt yourself or someone else? Patient reports no desire to harm self or others. 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 - Social history:: transitioning to male, Smoking status: Patient denies any tobacco usage or history of. - Infectious Disease History:: Denies. Screenin:46 [facility] ED Fall Risk Assessment (Adult) History of falling in the last 3 months, rs5 including since admission No falls in past 3 months (0 pts) Confusion or Disorientation No (0 pts) Intoxicated or Sedated No (0 pts) Impaired Gait No (0 pts) Mobility Assist Device Used No (0 pt) Altered Elimination No (0 pt) Score/Fall Risk Level 0 - 2 = Low Risk Oriented to surroundings, Maintained a safe environment. Abuse screen: Denies threats or abuse. Nutritional screening: No deficits noted. Tuberculosis screening: No symptoms or risk factors identified. Assessment: 09:46 General: Appears in no apparent distress. uncomfortable, Behavior is calm, cooperative. rs5 Pain: Complains of pain in abdomen Pain currently is 8 out of 10 on a pain scale. Quality of pain is described as aching, Is continuous. Neuro: Level of Consciousness is awake, alert, obeys commands, Oriented to person, place, time, situation. Cardiovascular: Patient's skin is warm and dry. Respiratory: Airway is patent Respiratory effort is even, unlabored, Respiratory pattern is regular, symmetrical. GI: Abdomen is round non-distended, Bowel sounds present X 4 quads. Abd is soft and non tender X 4 quads. GI: Reports nausea, vomiting. : No signs and/or symptoms were reported regarding the genitourinary system. EENT: No signs and/or symptoms were reported regarding the EENT system. Derm: Skin is intact, Skin is pink, warm \T\ dry. Musculoskeletal: Range of motion: intact in all extremities. 10:55 Reassessment: Patient and/or family updated on plan of care and expected duration. Pain rs5 level reassessed. Patient is alert, oriented x 3, equal unlabored respirations, skin warm/dry/pink. 11:31 Reassessment: Patient and/or family updated on plan of care and expected duration. Pain rs5 level reassessed. Patient is alert, oriented x 3, equal unlabored respirations, skin warm/dry/pink. 12:10 Reassessment: Patient and/or family updated on plan of care and expected duration. Pain rs5 level reassessed. Patient is alert, oriented x 3, equal unlabored respirations, skin warm/dry/pink. Vital Signs: 09:43 BP 141 / 93; Pulse 65; Resp 18; Pulse Ox 99% on R/A; Pain 9/10; iw 12:01 BP 127 / 88; Pulse 74; Resp 17; Pulse Ox 99% ; rs5 09:43 Pain Scale: Adult iw ED Course: 09:39 Patient arrived in ED. im 09:41 Liliya Ga FNP-C is PHCP. snw 09:41 Kel Chacko MD is Attending Physician. snw 09:44 Triage completed. iw 09:44 Arm band placed on. iw 09:46 Patient has correct armband on for positive identification. Placed in gown. Bed in low rs5 position. Call light in reach. Side rails up X2. 09:59 Quinteros, Saad, RN is Primary Nurse. rs5 10:01 No provider procedures requiring assistance completed. Inserted saline lock: 20 gauge rs5 in right antecubital area, using aseptic technique. Blood collected. Flushed with 10 mL NS. 10:21 Radiology exam delayed due to test not completed at this time. sm9 10:53 CT Stone Protocol In Process Unspecified. EDMS Administered Medications: 10:10 Drug: Promethazine IVP 6.25 mg IVP once Route: IVP; Site: right antecubital; rs5 10:22 Follow up: Response: No adverse reaction; Nausea is decreased rs5 10:20 Drug: NS 0.9% IV 1000 ml IV at 1000 ml once; to be given as a bolus over 60 minutes rs5 Route: IV; Rate: 1000 ml; Site: right antecubital; 11:20 Follow up: Response: No adverse reaction; IV Status: Completed infusion; IV Intake: rs5 1000ml 10:20 Drug: Ketorolac IVP 15 mg IVP once Route: IVP; Site: right antecubital; rs5 10:40 Follow up: Response: No adverse reaction; Pain is decreased rs5 11:03 Not Given (Patient Refused): morphineor iv 4 mg IVP once over 4 mins rs5 Medication: 09:45 VIS not applicable for this client. rs5 Intake: 11:20 IV: 1000ml; Total: 1000ml. rs5 Outcome: 12:06 Discharge ordered by . snw 12:15 Discharge ordered by MD. snw 12:34 Patient left the ED. em1 Signatures: Dispatcher [employer] EDMS Liliya Ga FNP-C FNP-Marcy Montes De Oca, RN Yousuf Miranda em1 Saad Quinteros, KERRIE RN rs5 Francisca Washington Sarah sm9
--- NOTE | 2024-08-21 12:07 | EDPHYS ---
Physician Documentation [facility] Name: Libia Mathew Age: 24 yrs Sex: Female : 2000 Arrival Date: 08/21/2024 Time: 09:37 Bed 14 Private MD: ED Physician Kel Chacko HPI: 08/21 10:06 This 24 yrs old Female presents to ER via Ambulatory with complaints of Abdominal Pain, snw Vomiting, possible . 10:06 The patient presents with abdominal pain in the right upper quadrant. Onset: The snw symptoms/episode began/occurred suddenly. The symptoms radiate to right back. Associated signs and symptoms: Pertinent positives: nausea and vomiting. The symptoms are described as sharp. Severity of pain: At its worst the pain was severe incapacitating. The patient has experienced a previous episode, but today's symptoms are worse. The patient has not recently seen a physician. 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 - Social history:: transitioning to male, Smoking status: Patient denies any tobacco usage or history of. - Infectious Disease History:: Denies. ROS: 10:02 Eyes: Negative for injury, pain, redness, and discharge, ENT: Negative for injury, snw pain, and discharge, Neck: Negative for injury, pain, and swelling, Cardiovascular: Negative for chest pain, palpitations, and edema, Respiratory: Negative for shortness of breath, cough, wheezing, and pleuritic chest pain, 10:02 : Negative for injury, bleeding, discharge, and swelling, MS/Extremity: Negative for injury and deformity, Skin: Negative for injury, rash, and discoloration, Neuro: Negative for headache, weakness, numbness, tingling, and seizure, Psych: Negative for depression, anxiety, suicide ideation, homicidal ideation, and hallucinations, 10:02 Constitutional: Positive for body aches, malaise, poor PO intake, 10:02 Abdomen/GI: Positive for abdominal pain, nausea, "feels like when I had my gallbladder taken out", 10:02 Back: Positive for radiated pain, Exam: 10:01 Eyes: Pupils equal round and reactive to light, extra-ocular motions intact. Lids and snw lashes normal. Conjunctiva and sclera are non-icteric and not injected. Cornea within normal limits. Periorbital areas with no swelling, redness, or edema. ENT: Nares patent. No nasal discharge, no septal abnormalities noted. Tympanic membranes are normal and external auditory canals are clear. Oropharynx with no redness, swelling, or masses, exudates, or evidence of obstruction, uvula midline. Mucous membranes moist. Neck: Trachea midline, no thyromegaly or masses palpated, and no cervical lymphadenopathy. Supple, full range of motion without nuchal rigidity, or vertebral point tenderness. No Meningismus. Chest/axilla: Normal chest wall appearance and motion. Nontender with no deformity. No lesions are appreciated. Cardiovascular: Regular rate and rhythm with a normal S1 and S2. No gallops, murmurs, or rubs. Normal PMI, no JVD. No pulse deficits. Respiratory: Lungs have equal breath sounds bilaterally, clear to auscultation and percussion. No rales, rhonchi or wheezes noted. No increased work of breathing, no retractions or nasal flaring. 10:01 Back: No spinal tenderness. No costovertebral tenderness. Full range of motion. Skin: Warm, dry with normal turgor. Normal color with no rashes, no lesions, and no evidence of cellulitis. MS/ Extremity: Pulses equal, no cyanosis. Neurovascular intact. Full, normal range of motion. Neuro: Awake and alert, GCS 15, oriented to person, place, time, and situation. Cranial nerves II-XII grossly intact. Motor strength 5/5 in all extremities. Sensory grossly intact. Cerebellar exam normal. Normal gait. Psych: Awake, alert, with orientation to person, place and time. Behavior, mood, and affect are within normal limits. 10:01 Constitutional: The patient appears alert, awake, restless, uncomfortable, 10:01 Head/face: facial hair, transitioning. 10:01 Abdomen/GI: Inspection: abdomen appears normal, Bowel sounds: normal, Palpation: mild abdominal tenderness, moderate abdominal tenderness, in the posterior aspect of right lateral abdomen and right upper quadrant, Vital Signs: 09:43 BP 141 / 93; Pulse 65; Resp 18; Pulse Ox 99% on R/A; Pain 9/10; iw 12:01 BP 127 / 88; Pulse 74; Resp 17; Pulse Ox 99% ; rs5 09:43 Pain Scale: Adult iw MDM: 09:41 Medical Screening Exam initiated snw 10:04 Differential diagnosis: gastritis, pancreatitis, Pyelonephritis, Ureterolithiasis, snw hemoconcentration, polycythemia. Data reviewed: vital signs, nurses notes, lab test result(s), radiologic studies. I considered the following discharge prescriptions or medication management in the emergency department Medications were administered in the Emergency Department. See MAR. Historians other than the Patient: Spouse/Significant Other: David. Counseling: I had a detailed discussion with the patient and/or guardian regarding the historical points, exam findings, and any diagnostic results supporting the discharge/admit diagnosis, lab results, radiology results. 10:58 Medication response: morphine markedly relieved the patient's pain. Symptoms have snw improved, Phenergan markedly relieved the patient's nausea, toradol, markedly relieved. 15:43 Special discussion: Based on the patient's Hx, exam, and Dx evaluation, there is no snw indication for emergent surgery or inpatient Tx. It is understood by the patient/guardian that if the Sx's persist or worsen they need to return immediately for re-evaluation. Based on the history and exam findings, there is no indication for further emergent testing or inpatient evaluation. I discussed with the patient/guardian the need to see the supervisor assembly department for further evaluation of the symptoms. I discussed with the patient/guardian the need to see the primary care provider for further evaluation of the symptoms. 08/21 09:48 Order name: PREGU; Complete Time: 10:33 snw 08/21 09:48 Order name: CBC with Diff; Complete Time: 10:15 snw 08/21 09:48 Order name: Chem 7; Complete Time: 10:33 snw 08/21 09:49 Order name: Lipid Profile; Complete Time: 10:33 snw 08/21 10:10 Order name: Lipase; Complete Time: 10:33 EDMS 08/21 09:48 Order name: CT Stone Protocol; Complete Time: 11:13 snw Administered Medications: 10:10 Drug: Promethazine IVP 6.25 mg IVP once Route: IVP; Site: right antecubital; rs5 10:22 Follow up: Response: No adverse reaction; Nausea is decreased rs5 10:20 Drug: NS 0.9% IV 1000 ml IV at 1000 ml once; to be given as a bolus over 60 minutes rs5 Route: IV; Rate: 1000 ml; Site: right antecubital; 11:20 Follow up: Response: No adverse reaction; IV Status: Completed infusion; IV Intake: rs5 1000ml 10:20 Drug: Ketorolac IVP 15 mg IVP once Route: IVP; Site: right antecubital; rs5 10:40 Follow up: Response: No adverse reaction; Pain is decreased rs5 11:03 Not Given (Patient Refused): morphineor iv 4 mg IVP once over 4 mins rs5 Disposition Summary: 08/21/24 12:15 Discharge Ordered Notes: Location: Home(08/21/24 12:15) snw Condition: Stable(08/21/24 12:15) snw Diagnosis - Abdominal pain, unspecified snw - Acute stress reaction(08/21/24 12:15) snw Followup: snw - With: Emergency Department - When: As needed - Reason: Worsening of condition Followup: snw - With: Private Physician - When: 2 - 3 days - Reason: Recheck today's complaints, Continuance of care, Re-evaluation by your physician Discharge Instructions: - Discharge Summary Sheet snw - Abdominal Pain, Adult snw - Colic snw - Stress, Adult snw Forms: - Medication Reconciliation Form snw - Antibiotic Education snw - Prescription Opioid Use snw - Patient Portal Instructions snw - Leadership Thank You Letter snw Prescriptions: - promethazine 25 mg Oral Tablet - take 1 tablet ORAL route every 6 hours As needed; 20 tablet; Refills: 0, snw Product Selection Permitted - dicyclomine 20 mg Oral tablet - take 1 tablet ORAL route 3 times per day; 20 tablet; Refills: 0, Product snw Selection Permitted Signatures: Dispatcher [employer] EDLiliya Momin FNP-C FNP-Csnw Marcy Amezcua RN RN iw Saad Quinteros RN RN rs5 Corrections: (The following items were deleted from the chart) 10:10 10:01 LIPASE+C.LAB.BRZ ordered. EDMS EDMS 12: 12:06 Home snw snw 12: 12:06 Stable snw snw 12: 12:06 Abdominal pain, Generalized snw snw 12: 12:06 Acute stress reaction snw snw
[2024-08-21 12:50] VITALS: BP 141/93; O2SAT 99
== END 2024-08-21 12:34 | disposition home or self-care (01) ==
LOC: ER 09:37
DX: R10.11 Right upper quadrant pain (principal); F43.0 Acute stress reaction
CPT/HCPCS: 36415; 74176; 76377; 80048; 80061; 81025; 83690; 85025; 96361; 96374; 96375; 99284; J2550; J7030

== ENCOUNTER 2024-10-24 18:48 | Emergency (ER) | payer BC, SELFPAY ==
[2024-10-24 20:04] LABS: SARS-CoV-2 Antigen CONTROL BLUE LINE VIS/BG OK; SARS-CoV-2 Antigen Rapid Res Negative (Negative)
--- NOTE | 2024-10-24 20:18 | RAD REPORT ---
Procedure: Chest Pa And Lat (2 Views) HISTORY: Cough COMPARISON: none FINDINGS: The lungs appear clear of acute infiltrate. No significant pleural effusion noted. The heart is normal size. IMPRESSION: No acute abnormality is displayed.
[2024-10-24] MEDS ORDERED: AMOX/K CLAV 875 MG TAB ONE (20:35)
--- NOTE | 2024-10-24 20:35 | EDPHYS ---
Physician Documentation [facility] Name: Fito Mathew Age: 24 yrs Sex: Male : 2000 Arrival Date: 10/24/2024 Time: 18:48 Bed 10 Private MD: ED Physician Garrison Meza HPI: 10/24 19:20 This 24 yrs old Male presents to ER via Ambulatory with complaints of Sick x3wks. cp 19:20 The patient or guardian reports cough, that is intermittent, with no sputum. cp 19:20 Onset: The symptoms/episode began/occurred 3 week(s) ago. Associated signs and cp symptoms: Pertinent positives: sore throat, sinus pressure and sinus congestion, Pertinent negatives: chest pain, diarrhea, fever, vomiting. Severity of symptoms: in the emergency department the symptoms are unchanged despite home interventions. Historical: - Allergies: 19:10 No Known Allergies; cm10 - PMHx: 19:10 depressive disorder; cm10 - PSHx: 19:10 Cholecystectomy; cm10 - Immunization history:: Adult Immunizations up to date. - Infectious Disease History:: Denies. - Social history:: Smoking status: Patient denies any tobacco usage or history of. ROS: 19:25 Constitutional: Negative for fever, poor PO intake, cp 19:25 Eyes: Negative for injury, pain, redness, and discharge, cp 19:25 ENT: Positive for sinus congestion, sinus pain, sore throat, 19:25 Respiratory: Positive for cough, with no reported sputum, 19:25 Abdomen/GI: Negative for abdominal pain, vomiting, diarrhea, constipation, 19:25 Skin: Negative for rash, 19:25 Neuro: Negative for altered mental status, 19:25 All other systems are negative, Exam: 19:30 Constitutional: The patient appears in no acute distress, alert, awake, non-toxic, well cp developed, well nourished, obese, 19:30 Head/face: Sinus tenderness, that is moderate, is located over the right frontal cp sinus, left frontal sinus, right maxillary sinus and left maxillary sinus, 19:30 Eyes: Periorbital structures: appear normal, Conjunctiva: normal, no exudate, no injection, Sclera: no appreciated abnormality, Lids and lashes: appear normal, bilaterally, 19:30 ENT: External ear(s): are unremarkable, Ear canal(s): are normal, clear, TM's: erythema, that is mild, on the right, fluid levels, on the right, Nose: is normal, Mouth: Lips: moist, Oral mucosa: moist, Posterior pharynx: Airway: no evidence of obstruction, patent, Tonsils: with erythema, no exudate, erythema, that is moderate, exudate, is not appreciated, 19:30 Neck: ROM/movement: is normal, is supple, no meningismus, no nuchal rigidity, 19:30 Chest/axilla: Inspection: normal, 19:30 Cardiovascular: Rate: bradycardic, 19:30 Respiratory: the patient does not display signs of respiratory distress, Respirations: normal, no use of accessory muscles, no retractions, labored breathing, is not present, Breath sounds: are clear throughout, no decreased breath sounds, no stridor, no wheezing, 19:30 Abdomen/GI: Exam negative for discomfort, distension, guarding, Inspection: obese Vital Signs: 19:09 BP 136 / 70; Pulse 58; Resp 17; Temp 98.3; Pulse Ox 96% on R/A; Weight 113.4 kg; Height cm10 5 ft. 8 in. ; Pain 4/10; 20:46 BP 130 / 70; Pulse 60; Resp 18; Pulse Ox 98% ; br2 19:09 Body Mass Index 38.01 (113.40 kg, 172.72 cm) cm10 19:09 Pain Scale: Adult cm10 MDM: 19:11 Medical Screening Exam initiated cp 20:33 Data reviewed: vital signs, nurses notes, lab test result(s), radiologic studies, plain cp films, and as a result, I will discharge patient. 20:33 Differential diagnosis: bronchitis, flu, pneumonia, otitis media, sinusitis, strep cp throat. I considered the following discharge prescriptions or medication management in the emergency department Medications were administered in the Emergency Department. See MAR. Independent interpretation of the following test(s) in the Emergency Department X-Ray: My interpretation is chest xray negative for focal pneumonia. Counseling: I had a detailed discussion with the patient and/or guardian regarding the historical points, exam findings, and any diagnostic results supporting the discharge/admit diagnosis, lab results, radiology results, to return to the emergency department if symptoms worsen or persist or if there are any questions or concerns that arise at home. Response to treatment: the patient's symptoms have mildly improved after treatment, and as a result, I will discharge patient. 10/24 19:16 Order name: Influenza Screen (a \T\ B); Complete Time: 20:07 cp 10/24 19:16 Order name: Strep; Complete Time: 20:07 cp 10/24 20:07 Interpretation: Reviewed. cp 10/24 19:16 Order name: SARS RAPID; Complete Time: 20:07 cp 10/24 19:16 Order name: XRAY Chest Pa And Lat (2 Views); Complete Time: 20:29 cp 10/24 20:30 Interpretation: Report reviewed. cp Administered Medications: 20:41 Drug: Amoxicillin-Clavulanate PO 875 mg PO once Route: PO; br2 20:45 Follow up: Response: Medication administered at discharge. br2 Disposition: 10/25 01:51 Co-signature as Attending Physician, Garrison Meza MD I reviewed the patient's care rt provided by the Advanced Practice Provider and agree with the diagnosis and treatment plan. 16:11 Chart complete. cp Disposition Summary: 10/24/24 20:34 Discharge Ordered Notes: Location: Home cp Problem: new cp Symptoms: have improved cp Condition: Stable cp Diagnosis - Streptococcal pharyngitis cp - Acute sinusitis, unspecified cp Followup: cp - With: Private Physician - When: 5 - 6 days - Reason: Worsening of condition Discharge Instructions: - Discharge Summary Sheet cp - Sinusitis, Adult cp - Strep Throat, Adult cp Forms: - Medication Reconciliation Form cp - Antibiotic Education cp - Prescription Opioid Use cp - Patient Portal Instructions cp - Leadership Thank You Letter cp Prescriptions: - Augmentin 875-125 mg Oral Tablet - take 1 tablet ORAL route every 12 hours for 10 days; 20 tablet; Refills: 0, cp Product Selection Permitted - Ibuprofen 800 mg Oral Tablet - take 1 tablet ORAL route every 8 hours As needed take with food; 30 tablet; cp Refills: 0, Product Selection Permitted - Tessalon Perles 100 mg Oral capsule - take 2 capsule ORAL route every 8 hours As needed; 30 capsule; Refills: 0, cp Product Selection Permitted Signatures: Dispatcher [employer] EDTX Main Good PA PA cp [place], Ryan, MD MD rt Lanette Rasmussen RN RN cm10 [place], Lucy, RN RN br2 Corrections: (The following items were deleted from the chart) 10/24 19:17 19:17 Chest Pa And Lat (2 Views)+RAD.RAD.BRZ ordered. EDMS EDMS
--- NOTE | 2024-10-24 20:35 | ER ---
Nurse's Notes [facility] Name: Fito Mathew Age: 24 yrs Sex: Male : 2000 Arrival Date: 10/24/2024 Time: 18:48 Bed 10 Private MD: Diagnosis: Streptococcal pharyngitis;Acute sinusitis, unspecified Presentation: 10/24 19:09 Chief complaint: Patient states: cough, body aches, headache intermittent for the last cm10 3 weeks. Coronavirus screen: Client denies travel out of the [place] in the last 14 days. Ebola Screen: Patient denies travel to an Ebola-affected area in the 21 days before illness onset. No symptoms or risks identified at this time. Initial Sepsis Screen: Does the patient meet any 2 criteria? No. Patient's initial sepsis screen is negative. Does the patient have a suspected source of infection? No. Patient's initial sepsis screen is negative. Risk Assessment: Do you want to hurt yourself or someone else? Patient reports no desire to harm self or others. Onset of symptoms was October 24, 2024. 19:09 Method Of Arrival: Ambulatory cm10 19:09 Acuity: NIRMAL 4 cm10 Triage Assessment: 19:10 General: Appears in no apparent distress. comfortable, Behavior is calm, cooperative. cm10 Neuro: No deficits noted. Level of Consciousness is awake, alert, obeys commands, Oriented to person, place, time, situation, Appropriate for age. Historical: - Allergies: 19:10 No Known Allergies; cm10 - PMHx: 19:10 depressive disorder; cm10 - PSHx: 19:10 Cholecystectomy; cm10 - Immunization history:: Adult Immunizations up to date. - Infectious Disease History:: Denies. - Social history:: Smoking status: Patient denies any tobacco usage or history of. Screenin:10 [facility] ED Fall Risk Assessment (Adult) History of falling in the last 3 months, br2 including since admission No falls in past 3 months (0 pts) Confusion or Disorientation No (0 pts) Intoxicated or Sedated No (0 pts) Impaired Gait No (0 pts) Mobility Assist Device Used No (0 pt) Altered Elimination No (0 pt) Score/Fall Risk Level 0 - 2 = Low Risk Oriented to surroundings. Abuse screen: Denies threats or abuse. Denies injuries from another. Nutritional screening: No deficits noted. Tuberculosis screening: No symptoms or risk factors identified. Assessment: 19:10 Reassessment: Patient and/or family updated on plan of care and expected duration. Pain br2 level reassessed. Patient is alert, oriented x 3, equal unlabored respirations, skin warm/dry/pink. General: Appears in no apparent distress. comfortable, Behavior is calm, cooperative. Pain: Complains of pain in chest, abdomen, pelvis, right arm, left arm, right leg and left leg BODYACHES ALL OVER Pain currently is 10 out of 10 on a pain scale. Neuro: Pate Agitation-Sedation Scale (RASS): 0 - Alert and Calm Level of Consciousness is awake, alert, obeys commands, Oriented to person, place, time, situation. Cardiovascular: Capillary refill < 3 seconds. Respiratory: Breath sounds are clear bilaterally. GI: Abdomen is round obese. : No signs and/or symptoms were reported regarding the genitourinary system. 20:15 Reassessment: No changes from previously documented assessment. Patient and/or family br2 updated on plan of care and expected duration. Pain level reassessed. Patient is alert, oriented x 3, equal unlabored respirations, skin warm/dry/pink. Vital Signs: 19:09 BP 136 / 70; Pulse 58; Resp 17; Temp 98.3; Pulse Ox 96% on R/A; Weight 113.4 kg; Height cm10 5 ft. 8 in. ; Pain 4/10; 20:46 BP 130 / 70; Pulse 60; Resp 18; Pulse Ox 98% ; br2 19:09 Body Mass Index 38.01 (113.40 kg, 172.72 cm) cm10 19:09 Pain Scale: Adult cm10 ED Course: 18:52 Patient arrived in ED. ra3 19:01 Main Good PA is PHCP. cp 19:01 Garrison Meza MD is Attending Physician. cp 19:10 Triage completed. cm10 19:10 Arm band placed on right wrist. Patient placed in an exam room, on a stretcher. cm10 19:10 Patient has correct armband on for positive identification. Placed in gown. Bed in low br2 position. Call light in reach. Provided Education on: PLAN OF CARE. 19:14 [place], Lucy, RN is Primary Nurse. br2 20:01 SARS RAPID Sent. br2 20:01 Strep Sent. br2 20:01 Influenza Screen (a \T\ B) Sent. br2 20:08 XRAY Chest Pa And Lat (2 Views) In Process Unspecified. EDMS Administered Medications: 20:41 Drug: Amoxicillin-Clavulanate PO 875 mg PO once Route: PO; br2 20:45 Follow up: Response: Medication administered at discharge. br2 Outcome: 20:34 Discharge ordered by . randi 20:46 Patient left the ED. br2 Signatures: Dispatcher [employer] EDMS Main Good PA PA cp Martinez, Clarissa, RN RN cm10 [place] ra3 Lucy Kelley RN RN br2
[2024-10-24 20:58] VITALS: TEMP 98.3
[2024-10-24 21:00] VITALS: BP 130/70; O2SAT 98
== END 2024-10-24 20:46 | disposition home or self-care (01) ==
LOC: ER 18:48
DX: J02.0 Streptococcal pharyngitis (principal); J01.90 Acute sinusitis, unspecified; Z11.52 Encounter for screening for COVID-19
CPT/HCPCS: 36415; 71046; 87081; 87804; 87811; 99283